=== PATIENT | male | born 1965 | race Caucasian/White ===

== ENCOUNTER 2016-07-31 00:02 | Emergency (ER) | payer MEDICAID, OTHER ==
[~2016-07-31] VITALS: Ht 167.6 cm; Wt 98.5 kg
[2016-07-31 00:12] VITALS: Ht 167.6 cm; Wt 98.5 kg
--- NOTE | 2016-07-31 03:34 | RADRPT ---
PROCEDURE: CHEST - 1 VIEW CLINICAL INDICATION: 50-year-old male with cough. TECHNIQUE: A single frontal AP upright portable view of the chest was performed. The images were reviewed on a PACS workstation. COMPARISON: None. FINDINGS: The cardiomediastinal silhouette has a normal appearance. There is no evidence for an infiltrate. There is no evidence for congestive heart failure. There is no evidence for pneumothorax. The osseou s structures are intact. IMPRESSION: No evidence for active cardiopulmonary disease. .Clive Calderon MD, MD Date Time Electronically viewed and signed by .Clive Calderon MD, on 07/31/2016 03:33 .M/
--- NOTE | 2016-07-31 03:47 | ERD ---
ER Documentation Chief Complaint Date/Time DATE: 07/31/16 TIME: 03:46 Chief Complaint cough x 3 weeks, chest congestion HPI This is a 50-year-old male who presents to the emergency room for evaluation of a cough and congestion for the past 10 days. The patient states that he has had some chest congestion, and a dry cough. He states that he did take some cough medicine which helped slightly but he came to the ER for evaluation to rule out any pneumonia. Patient denies any fevers or chills or nausea or vomiting. ROS All systems reviewed and are negative except as per history of present illness. Allergies Allergies: Coded Allergies: Fish Containing Products (Verified Allergy, Unknown, 07/31/16) Physical Exam Vitals Vital Signs Date Time Temp Pulse Resp B/P Pulse Ox O2 Delivery O2 Flow Rate FiO2 07/31/16 00:12 98.4 62 20 154/84 96 Physical Exam Const: No acute distress Head: Atraumatic Eyes: Normal Conjunctiva ENT: Pharyngeal erythema, no visible exudate normal External Ears, Nose and Mouth. Neck: Full range of motion..~ No meningismus. Resp: Clear to auscultation bilaterally Cardio: Regular rate and rhythm, no murmurs Abd: Soft, non tender, non distended. Normal bowel sounds Skin: No petechiae or rashes Back: No midline or flank tenderness Ext: No cyanosis, or edema Neur: Awake and alert Psych: Normal Mood and Affect Procedures/MDM Chest X-ray 1V Interpreted by me: Soft Tissue: No acute abnormalities Bones: No acute abnormalities Mediastinum/Cardiac Silhouette/Lungs: [No acute abnormalities] EKG: Rate/Rhythm: Sinus bradycardia QRS, ST, T-waves: [No changes consistent w/ acute ischemia] Impression: [No evidence of ischemia or arrhythmia] This 50-year-old male presents to the emergency room for evaluation of a cough and congestion. When I evaluated this patient his lungs were clear. A chest x- ray was obtained to rule out pneumonia and chest x-ray is also clear. The patient an EKG which shows sinus bradycardia. He is not hypoxic, no respiratory distress. The patient will be discharged home with a prescription for Robitussin. Patient presents with straightforward URI symptoms. Clinical exam is not consistent with pneumonia, sepsis or significant bacterial disease. Patient is well hydrated, non-toxic and appropriate for outpatient, supportive care. Departure Diagnosis: Primary Impression: Cough Additional Impression: URI, acute Condition: Stable JUSTIN VASQUEZ DO Jul 31, 2016 03:47
[2016-07-31] MEDS ORDERED: UDROBDM PO (03:48)
[2016-07-31] MEDS ORDERED: OXYM15SP34 NASAL (03:48)
[2016-07-31 03:55] VITALS: BP 148/78; PULSE 70; RESP 18; TEMP 98.4
== END 2016-07-31 03:56 | disposition home or self-care (01) ==
LOC: E/R 00:02
DX: R05 Cough (principal); J06.9 Acute upper respiratory infection, unspecified; R00.1 Bradycardia, unspecified
CPT/HCPCS: 71010; 93005

== ENCOUNTER 2017-10-01 23:20 | Emergency (ER) | END 2017-10-02 01:36 | disposition home or self-care (01) ==